=== PATIENT | female | born 1950 | race Caucasian/White ===

== ENCOUNTER 2016-10-20 08:04 | Outpatient (CLI) | payer MEDICARE, OTHER | END 2016-10-20 08:05 | disposition home or self-care (01) | DX: N05.9 Unspecified nephritic syndrome with unspecified morphologic changes (principal); D70.0 Congenital agranulocytosis; D63.1 Anemia in chronic kidney disease; T86.10 Unspecified complication of kidney transplant ==

== ENCOUNTER 2016-11-27 07:43 | Outpatient (CLI) | payer MEDICARE, OTHER | END 2016-11-27 07:44 | disposition home or self-care (01) | DX: N05.9 Unspecified nephritic syndrome with unspecified morphologic changes (principal); D70.0 Congenital agranulocytosis; D63.1 Anemia in chronic kidney disease; T86.10 Unspecified complication of kidney transplant ==

== ENCOUNTER 2016-12-05 07:09 | Emergency (ER) | payer MEDICARE, OTHER ==
[2016-12-05] MEDS ORDERED: HYDROmorphone 1 MG/ML SYRINGE IVP STA (07:33)
[2016-12-05] MEDS ORDERED: cefTRIAXone 1 GM in SODIUM CHLORIDE 0.9% MINIBAG 100 ML IV STA (07:33)
[2016-12-05] MEDS ORDERED: ONDANSETRON 4 MG/2 ML VIAL IVP STA (07:33)
[2016-12-05] MEDS ORDERED: ONDANSETRON 4 MG/2 ML VIAL ONE (07:43)
[2016-12-05] MEDS ORDERED: HYDROmorphone 1 MG/ML SYRINGE ONE (07:43)
[2016-12-05] MEDS ORDERED: cefTRIAXone 1 GM VIAL ONE ×2 (07:44→08:17)
[2016-12-05] MEDS ORDERED: LIDOCAINE 1% 2 ML VIAL ONE (08:17)
== END 2016-12-05 11:12 | disposition home or self-care (01) ==
DX: L03.115 Cellulitis of right lower limb (principal); Z94.0 Kidney transplant status; E11.9 Type 2 diabetes mellitus without complications; Z79.4 Long term (current) use of insulin; I10 Essential (primary) hypertension; Z87.891 Personal history of nicotine dependence; Z79.02 Long term (current) use of antithrombotics/antiplatelets; Z79.82 Long term (current) use of aspirin
CPT/HCPCS: 36415; 80053; 81003; 83605; 83690; 85025; 87040; 96372; 96374; 96375; 99283; 99284; J1170

== ENCOUNTER 2016-12-29 06:23 | Outpatient (CLI) | payer MEDICARE, OTHER | END 2016-12-29 06:24 | disposition home or self-care (01) | DX: N18.9 Chronic kidney disease, unspecified (principal); E11.9 Type 2 diabetes mellitus without complications; E78.1 Pure hyperglyceridemia; N05.9 Unspecified nephritic syndrome with unspecified morphologic changes; D70.0 Congenital agranulocytosis; D63.1 Anemia in chronic kidney disease; T86.10 Unspecified complication of kidney transplant ==

== ENCOUNTER 2017-03-12 08:00 | Outpatient (CLI) | payer MEDICARE, OTHER ==
[2017-03-12 13:31] LABS: BASOPHILS # (AUTO) 0.1 10^3/uL (0.0-0.1); BASOPHILS % (AUTO) 0.8 %; EOSINOPHILS # (AUTO) 0.3 10^3/uL (0.0-0.7); EOSINOPHILS % (AUTO) 2.9 %; HCT - HEMATOCRIT 39.2 % (37.0-47.0); HGB - HEMOGLOBIN 12.7 g/dL (12.0-16.0); LYMPHOCYTES # (AUTO) 2.5 10^3/uL (1.5-3.5); LYMPHOCYTES % (AUTO) 24.2 %; MEAN CORPUSCULAR HGB CONC 32.4 g/dL (32.0-36.0); MEAN CORPUSCULAR VOLUME 92.5 fL (81.0-99.0); MEAN PLATELET VOLUME 8.4 fL (7.9-10.8); MONOCYTES # (AUTO) 0.8 10^3/uL (0.0-1.0); MONOCYTES % (AUTO) 7.8 %; NEUTROPHILS # (AUTO) 6.7 10^3/uL (1.5-6.6); NEUTROPHILS % (AUTO) 64.3 %; NUCLEATED RED BLOOD CELLS AUTO 0.1 /100WBC; RED BLOOD COUNT 4.23 10^6/uL (4.20-5.40); RED CELL DISTRIBUTION WIDTH 13.9 % (12.0-15.0); UNCORRECTED WHITE BLOOD COUNT 10.4 x10^3/uL; WHITE BLOOD COUNT 10.4 x10^3/uL (4.8-10.8)
[2017-03-12 13:54] LABS: ALBUMIN/GLOBULIN RATIO 1.2 (1.0-2.2); BILIRUBIN,TOTAL 0.8 mg/dL (0.2-1.0); CALCIUM 10.2 mg/dL (8.5-10.3); CREATININE 1.5 mg/dL (0.4-1.0); MAGNESIUM 2.2 mg/dL (1.7-2.8); PHOSPHORUS 3.5 mg/dL (2.5-4.6); POTASSIUM 3.1 mmol/L (3.5-5.0); TOTAL PROTEIN 7.4 g/dL (6.7-8.2)
== END 2017-03-12 08:01 | disposition home or self-care (01) ==
LOC: LAB.N 08:00
PROVIDERS: ATTEND Internal Medicine Nephrology
DX: Z94.0 Kidney transplant status (principal); T86.40 Unspecified complication of liver transplant
CPT/HCPCS: 36415; 80053; 80197; 83735; 84100; 85025

== ENCOUNTER 2017-04-06 14:33 | Outpatient (CLI) | payer OTHER ==
--- NOTE | 2017-04-09 16:43 | Mammography Report ---
DIGITAL SCREENING MAMMOGRAM: 04/06/2017 CLINICAL INDICATION: A 66-year-old nulliparous patient with history of benign right breast biopsy fo r screening. COMPARISON: 10/2015, 08/2014, 07/2013, 07/2012, 07/2011, 02/2010, 02/2009, 02/2008, 02/2007 TECHNIQUE: Routine CC and MLO projections were obtained of the breasts. FINDINGS: The breasts again demonstrate scattered fibroglandular densities bilaterally. Coarse and punctate, typically benign calcifications are present. No suspicious masses, clustered microcalcific ations, or regions of architectural distortion are identified. IMPRESSION: BENIGN FINDINGS. RECOMMENDATION: Routine annual screening unless otherwise clinically indicated. BIRADS CATEGORY 2 - BENIGN FINDINGS. STANDARD QUALIFYING STATEMENTS 1. This examination was reviewed with the aid of Computer-Aided Detection (CAD). 2. A negative or benign imaging report should not delay biopsy if clinically suspicious findings are present. Consider surgical consultation if warranted. More than 5% of cancers are not identified by i maging. 3. Dense breasts may obscure an underlying neoplasm. JOB #: [id number] EXT JOB #:[id number]
== END 2017-04-06 14:34 | disposition home or self-care (01) ==
LOC: DI 14:33
PROVIDERS: ATTEND Internal Medicine
DX: Z12.31 Encounter for screening mammogram for malignant neoplasm of breast (principal); Z80.3 Family history of malignant neoplasm of breast
CPT/HCPCS: 77067

== ENCOUNTER 2017-04-25 07:19 | Outpatient (CLI) | payer OTHER | END 2017-04-25 07:20 | disposition critical access hospital (66) | LOC: EMS 07:19 | PROVIDERS: ATTEND Surgery | DX: R41.82 Altered mental status, unspecified (principal) | CPT/HCPCS: A0425; A0429 ==

== ENCOUNTER 2017-04-25 07:37 | Emergency (ER) | payer OTHER ==
[2017-04-25] MEDS ORDERED: ONDANSETRON ODT 4 MG TABLET ONE (07:52)
[2017-04-25] MEDS ORDERED: SODIUM CHLORIDE 0.9% 1,000 ML IV ONE (07:56)
[2017-04-25] MEDS ORDERED: SODIUM CHLORIDE FLUSH 0.9% 10 ML SYRINGE IVP ONE (08:38)
[2017-04-25 09:18] LABS: BASOPHILS # (AUTO) 0.1 10^3/uL (0.0-0.1); BASOPHILS % (AUTO) 0.3 %; HCT - HEMATOCRIT 37.6 % (37.0-47.0); HGB - HEMOGLOBIN 12.3 g/dL (12.0-16.0); LYMPHOCYTES % (AUTO) 5.7 %; MEAN CORPUSCULAR HGB CONC 32.7 g/dL (32.0-36.0); MEAN CORPUSCULAR VOLUME 91.7 fL (81.0-99.0); MEAN PLATELET VOLUME 8.2 fL (7.9-10.8); MONOCYTES # (AUTO) 1.4 10^3/uL (0.0-1.0); MONOCYTES % (AUTO) 7.7 %; NEUTROPHILS # (AUTO) 15.2 10^3/uL (1.5-6.6); NEUTROPHILS % (AUTO) 86.3 %; RED CELL DISTRIBUTION WIDTH 14.2 % (12.0-15.0); UNCORRECTED WHITE BLOOD COUNT 17.7 x10^3/uL; WHITE BLOOD COUNT 17.7 x10^3/uL (4.8-10.8)
[2017-04-25 09:29] LABS: INR 1.1 (0.8-1.2); PT - PROTHROMBIN TIME 11.8 secs (9.9-12.6)
[2017-04-25 09:33] LABS: ALBUMIN/GLOBULIN RATIO 1.1 (1.0-2.2); BILIRUBIN,TOTAL 1.1 mg/dL (0.2-1.0); CALCIUM 10.2 mg/dL (8.5-10.3); CREATININE 2.1 mg/dL (0.4-1.0); POTASSIUM 4.3 mmol/L (3.5-5.0); TOTAL PROTEIN 7.2 g/dL (6.7-8.2)
[2017-04-25 09:36] LABS: PARTIAL THROMBOPLASTIN TIME 18.4 secs (24.9-33.3)
[2017-04-25] MEDS ORDERED: ONDANSETRON ODT 4 MG TABLET TL STA (09:40)
[2017-04-25] MEDS ORDERED: HYDROmorphone 1 MG/ML SYRINGE IVP STA (09:47)
--- NOTE | 2017-04-25 09:48 | XRAY Preliminary Report ---
Exam: XR Chest for Line Placement IMPRESSION: 1. A small catheter is projected over the right side of neck in the expected jugular region. However the intrathoracic portion of the catheter cannot be visualized. 2. No acute abnormality or pneumothorax in this oblique view. [facility] SITE ID: [id number]
--- NOTE | 2017-04-25 09:50 | XRAY Report ---
EXAM: CHEST RADIOGRAPHY EXAM DATE: 04/25/2017 09:29 AM. CLINICAL HISTORY: Cough, fever. Rt IJ Placement. COMPARISON: CHEST RADIOGRAPHY 08/25/2015. TECHNIQUE: Portable right oblique view. FINDINGS: There is respiratory motion blurring. Lungs/Pleura: No focal opacities evident. No pleural effusion. No pneumothorax. Mediastinum: Within exam limitations, cardiomediastinal contour is normal for an oblique view. Other: A small catheter is projected over the right side of neck in the expected jugular region. Garcia russ the intrathoracic portion of the catheter cannot be visualized. IMPRESSION: 1. A small catheter is projected over the right side of neck in the expected jugular region. However the intrathoracic portion of the catheter cannot be visualized. 2. No acute abnormality or pneumothorax in this oblique view. [facility] Referring Provider Line: [phone] SITE ID: [id number]
[2017-04-25] MEDS ORDERED: HYDROmorphone 1 MG/ML SYRINGE ONE (09:56)
[2017-04-25] MEDS ORDERED: CEFEPIME 1 GM in SODIUM CHLORIDE 0.9% MINIBAG 100 ML IV STA (10:11)
[2017-04-25 10:18] LABS: BILIRUBIN,URINE NEGATIVE (NEGATIVE); PH,URINE 5.5 PH (5.0-7.5)
[2017-04-25 10:21] LABS: UA w/ MICROSCOPIC CHARGE YES
[2017-04-25 10:27] LABS: UR CULTURE IF IND NOT INDICATED; WBC,URINE 0-3 /HPF (0-5)
--- NOTE | 2017-04-25 11:22 | CT Report ---
EXAM: CT ABDOMEN AND PELVIS WITHOUT CONTRAST EXAM DATE: 04/25/2017 10:47 AM. CLINICAL HISTORY: Diarrhea, n/v. R/O SBO. Kidney transplant. COMPARISONS: CT ABDOMEN AND PELVIS WITHOUT CONTRAST 05/05/2016. TECHNIQUE: Routine helical CT imaging was performed through the abdomen and pelvis. IV contrast: None . Enteric contrast: No. Reconstructions: Coronal and sagittal. In accordance with CT protocol optimization, one or more of the following dose reduction techniques w ere utilized for this exam: automated exposure control, adjustment of mA and/or KV based on patient s ize, or use of iterative reconstructive technique. FINDINGS: Lung Bases: Unremarkable. Liver: Normal. No masses. Gallbladder/Bile Ducts: Post cholecystectomy. No dilated ducts. Spleen: Normal. Pancreas: Moderate to severe fatty atrophy, otherwise unremarkable. Adrenal Glands: Normal. Kidneys: Bilateral small [place] kidneys with marked thinning of cortex. No masses or hydronephrosis. Peritoneal Cavity/Bowel: Right iliac fossa renal transplant with normal morphology, without hydroneph rosis, calcification or perinephric abnormal fluid collection. No free fluid, free air or adenopathy. No masses or acute inflammatory process. The appendix is well visualized and normal. Pelvic Organs: Small amount of air within the otherwise normal urinary bladder, presumably secondary to instrumentation. The other visualized pelvic organs are within normal limits. Vasculature: No aneurysms or other significant abnormality. Bones: No significant abnormality. Other: None. IMPRESSION: 1. Stable examination with no acute abnormality. 2. No bowel obstruction or intra-abdominal inflammation. 3. Small amount of air within the otherwise normal urinary bladder, presumably secondary to instrumen tation. 4. Right iliac fossa renal transplant with normal morphology, without hydronephrosis, calcification o r perinephric abnormal fluid collection. [facility] Referring Provider Line: [phone] SITE ID: [id number]
--- NOTE | 2017-04-25 13:33 | ED Physician Documentation ---
History of Present Illness - Stated complaint Stated Complaint: HIP PX/POSS CVA - Chief complaint Chief Complaint: Neuro - Additonal information Additional information: She is a 66-year-old female who with a history of hypertension, diabetes, end- stage renal failure who is status post renal transplant in 2013. She is on tacrolimus and mycophenolate. She felt a little malaise and generalized unwellness yesterday and awoke this morning feeling very very weak. She does not recall exactly what happened but apparently she slipped or lowered herself to the floor which point she is unable to get up. The patient crawled around on the floor until she is able to summon help. When EMS arrived the patient was on the floor and there is feces in several different locations consistent with multiple episodes of diarrhea. The patient denies any obvious fever and she has not had any nausea vomiting. She did complain of generalized abdominal pain which is now better after having several bowel movements. She has not had any chest pain or coughing. She does complain of pain in her legs which is an ongoing issue. Review of systems: For pertinent positive and negatives in the review of systems please see the history of present illness, otherwise all other systems have been reviewed and are negative. Dragon disclaimer: Parts of this medical record were created using voice recognition technology. Because of the inherent limitations of this system, occasional same sounding word substitutions do occur and persist despite proofreading. Please read the document for context. Review of Systems Constitutional: reports: Chills, Myalgias Eyes: denies: Loss of vision Ears: denies: Loss of hearing, Ear pain, Drainage/discharge Nose: denies: Rhinorrhea / runny nose Throat: denies: Dental pain / toothache Cardiac: denies: Chest pain / pressure, Palpitations, Pedal edema, Calf pain Respiratory: denies: Dyspnea, Cough, Hemoptysis, Wheezing GI: reports: Abdominal Pain, Diarrhea. denies: Abdominal Swelling, Nausea, Vomiting : denies: Dysuria, Frequency, Hesitancy Skin: denies: Rash Musculoskeletal: denies: Neck pain, Back pain Neurologic: reports: Generalized weakness. denies: Numbness, Difficulty speaking, Near syncope, Syncope, Confused, Altered mental status Psychiatric: reports: Depressed, Suicidal Endocrine: denies: Polydypsia, Polyuria, Polyphagia PD PAST MEDICAL HISTORY - Past Medical History Past Medical History: Yes Cardiovascular: Hypertension, High cholesterol, Murmur Respiratory: Pneumonia Neuro: CVA Endocrine/Autoimmune: Type 2 diabetes GI: Pancreatitis, Cholelithiasis : Dialysis, Renal insuffiency, Nocturia, Other HEENT: Other Psych: Depression Musculoskeletal: Osteoarthritis, Fibromyalgia Derm: Other - Past Surgical History Past Surgical History: Yes General: Cholecystectomy Ortho: Arthroscopic surgery /[employer]: Dilation and currettage HEENT: Cataracts - Present Medications Home Medications: Ambulatory Orders Medication Instructions Recorded Confirmed Aspirin [Adult Low Dose Aspirin EC] 81 mg PO DAILY 02/26/13 04/25/17 Insulin Glargine,Hum.rec.anlog 35 unit SQ QPM 02/26/13 04/25/17 [Lantus] Insulin Lispro [Humalog] 9 - 12 unit SQ TIDWM 02/26/13 04/25/17 Lovastatin 10 mg PO QPM 02/26/13 04/25/17 Multivitamin [Multi-Day Vitamins] 1 tab PO DAILY 05/15/14 04/25/17 Prednisone 5 mg PO DAILY 05/15/14 04/25/17 Losartan [Cozaar] 100 mg PO DAILY 09/19/14 04/25/17 Mycophenolate Sodium [Mycophenolic 360 mg PO BID 09/19/14 04/25/17 Acid] Ranitidine HCl [Zantac] 150 mg PO QPM 09/19/14 04/25/17 Tacrolimus [Prograf] 1.5 mg PO BID 09/19/14 04/25/17 Furosemide [Lasix] 80 mg PO DAILY 03/03/15 04/25/17 Bimatoprost [Lumigan] 1 drop EACHEYE QPM 05/06/16 04/25/17 Brimonidine Tartrate/Timolol 1 drop EACHEYE BID 05/06/16 04/25/17 [Combigan 0.2%-0.5% Eye Drops] Clopidogrel [Plavix] 75 mg PO DAILY 05/06/16 04/25/17 Furosemide 40 mg PO QPM 05/06/16 04/25/17 Cephalexin [Keflex] 500 mg PO QID #30 capsule 12/05/16 04/25/17 Sulfamethoxazole/Trimethoprim 1 each PO BID #14 tablet 12/05/16 04/25/17 [Sulfamethoxazole-Tmp Ds Tablet] traMADol [Ultram] 50 - 100 mg PO Q4-6H PRN #20 tablet 12/05/16 04/25/17 - Allergies Allergies/Adverse Reactions: Allergies Allergy/AdvReac Type Severity Reaction Status Date / Time vancomycin Allergy Intermediate Rash Verified 05/05/16 17:39 erythromycin base Allergy Mild Rash Verified 05/05/16 17:39 [Erythromycin Base] hydrocodone [Hydrocodone] AdvReac Intermediate Nausea Verified 05/05/16 17:39 silver * AdvReac Mild Rash Verified 05/05/16 17:39 [From Tegaderm AG Mesh] - Social History Does the pt smoke?: No Smoking Status: Former smoker Does the pt drink ETOH?: No Does the pt have substance abuse?: No - Immunizations Immunizations are current?: Yes - POLST Patient has POLST: No PD ED PE NORMAL - Vitals Vital signs reviewed: Yes - General General: Other (Patient appears somnolent but is arousable. She appears mildly sedated. She does not look overtly toxic or ill but she is mildly diaphoretic and slightly warm to touch) - HEENT HEENT: Atraumatic, PERRL, EOMI - Neck Neck: Supple, no meningeal sign, No bony TTP, No JVD - Cardiac Cardiac: RRR, No murmur, No gallop, No rub - Respiratory Respiratory: No respiratory distress, Clear bilaterally - Abdomen Abdomen: Normal bowel sounds, Soft, Other (Mild diffuse tenderness which is generalized without focal) - Derm Derm: Normal color, Warm and dry, No rash, Other - Extremities Extremities: No deformity, No tenderness to palpate, Normal ROM s pain - Neuro Neuro: Alert and oriented X 3, No motor deficit, No sensory deficit Results - Vitals Vitals: Vital Signs - 24 hr 04/25/17 04/25/17 04/25/17 07:38 09:20 10:08 Temperature 37.9 C H 38.2 C H Heart Rate 87 89 85 Respiratory 18 20 18 Rate Blood Pressure 159/57 H 164/54 H 134/43 H O2 Saturation 96 96 97 04/25/17 04/25/17 10:53 12:15 Temperature Heart Rate 82 78 Respiratory 18 16 Rate Blood Pressure 145/46 H 128/51 L O2 Saturation 96 97 Oxygen O2 Source Room air - Labs Labs: Laboratory Tests 0804/25/17 04/25/17 09:00 09:00 09:00 WBC 17.7 H RBC 4.10 L Hgb 12.3 Hct 37.6 MCV 91.7 MCH 30.0 MCHC 32.7 RDW 14.2 Plt Count 214 MPV 8.2 Neut # 15.2 H Lymph # 1.0 L Eddy # 1.4 H Eos # 0.0 Baso # 0.1 Absolute Nucleated RBC 0.00 Nucleated RBCs 0.0 PT 11.8 INR 1.1 APTT 18.4 L Sodium 136 Potassium 4.3 Chloride 94 L Carbon Dioxide 28 Anion Gap 14.0 H BUN 70 H Creatinine 2.1 H Estimated GFR (MDRD) 24 L Glucose 317 H Lactic Acid Calcium 10.2 Total Bilirubin 1.1 H AST 31 ALT 18 Alkaline Phosphatase 70 Troponin I B-Natriuretic Peptide Total Protein 7.2 Albumin 3.7 Globulin 3.5 Albumin/Globulin Ratio 1.1 Lipase 58 H Urine Color Urine Clarity Urine pH Ur Specific [place] Urine Protein Urine Glucose (UA) Urine Ketones Urine Occult Blood Urine Nitrite Urine Bilirubin Urine Urobilinogen Ur Leukocyte Esterase Urine RBC Urine WBC Ur Epithelial Cells Ur Squamous Epith Cells Urine Bacteria Ur Microscopic Review Urine Culture Comments 04/25/17 04/25/17 04/25/17 09:00 09:00 09:00 WBC RBC Hgb Hct MCV MCH MCHC RDW Plt Count MPV Neut # Lymph # Eddy # Eos # Baso # Absolute Nucleated RBC Nucleated RBCs PT INR APTT Sodium Potassium Chloride Carbon Dioxide Anion Gap BUN Creatinine Estimated GFR (MDRD) Glucose Lactic Acid 1.6 Calcium Total Bilirubin AST ALT Alkaline Phosphatase Troponin I 0.07 B-Natriuretic Peptide 788 H Total Protein Albumin Globulin Albumin/Globulin Ratio Lipase Urine Color Urine Clarity Urine pH Ur Specific [place] Urine Protein Urine Glucose (UA) Urine Ketones Urine Occult Blood Urine Nitrite Urine Bilirubin Urine Urobilinogen Ur Leukocyte Esterase Urine RBC Urine WBC Ur Epithelial Cells Ur Squamous Epith Cells Urine Bacteria Ur Microscopic Review Urine Culture Comments 04/25/17 10:07 WBC RBC Hgb Hct MCV MCH MCHC RDW Plt Count MPV Neut # Lymph # Eddy # Eos # Baso # Absolute Nucleated RBC Nucleated RBCs PT INR APTT Sodium Potassium Chloride Carbon Dioxide Anion Gap BUN Creatinine Estimated GFR (MDRD) Glucose Lactic Acid Calcium Total Bilirubin AST ALT Alkaline Phosphatase Troponin I B-Natriuretic Peptide Total Protein Albumin Globulin Albumin/Globulin Ratio Lipase Urine Color YELLOW Urine Clarity HAZY Urine pH 5.5 Ur Specific [place] 1.020 Urine Protein NEGATIVE Urine Glucose (UA) 100 H Urine Ketones NEGATIVE Urine Occult Blood MODERATE H Urine Nitrite NEGATIVE Urine Bilirubin NEGATIVE Urine Urobilinogen 0.2 (NORMAL) Ur Leukocyte Esterase NEGATIVE Urine RBC 0-5 Urine WBC 0-3 Ur Epithelial Cells RARE Renal Tubular Ur Squamous Epith Cells FEW Squamous Urine Bacteria Rare Ur Microscopic Review INDICATED Urine Culture Comments NOT INDICATED PD MEDICAL DECISION MAKING - ED course Complexity details: reviewed old records, reviewed results, re-evaluated patient , considered differential, d/w patient, d/w [facility] consultant ED course: Patient is a 66-year-old female history of hypertension, diabetes, chronic kidney disease status post renal transplant in 2013. The kidney is in the right lower quadrant of her abdomen. She complained of the day of malaise and then had generalized weakness with several episodes of diarrhea this morning and was unable to get off the floor at her home. She was brought in by ambulance for evaluation. Here the patient appeared a little somnolent and had poor recollection of events. She did have a nonfocal neurologic examination. She is palpably warm to touch rectal temperature was 100.7. She was not tachycardic or hypotensive. Given her history of renal transplant and immunosuppressive medications I was concerned about sepsis as an etiology. Blood cultures and serum lactate were obtained. The patient had very poor IV access and after spending 30 minutes looking for access the right internal jugular 20-gauge catheter was placed by me using ultrasound guidance and usual sterile technique. The initial plan was to place a triple-lumen catheter however the with vein was easily found with ultrasound and cannulated however on multiple attempts a wire would not pass easily. At this point in time I place a 20-gauge 3 inch catheter without problem and obtained blood samples for evaluation. Radiographically the catheter appears to be a normal position afterward without complications there is no evidence of any acute intrathoracic disease. EKG on this patient shows normal sinus rhythm. The patient was tremulous initially which gives it a pattern it looks like atrial fibrillation however it appears to be normal sinus rhythm on further evaluation. There is a Q-wave inferiorly and poor R-wave progression otherwise no acute ST-T wave abnormality is seen. Because of the diarrhea and probable sepsis a CT without contrast was performed on her abdomen and pelvis looking for possible source. The CT scan is unremarkable for anything acute. The transplanted kidney appears to be normal in appearance on CT scan.. This patient does have elevation of her white blood cell count at 17,000. There is interval slight worsening in her renal function with a BUN increasing from 64-70 from February until now and a creatinine increased from 1.5-2.1 today again the prior one from February. The patient's urine is clean and her serum lactate is 1.8. There is no evidence of obvious source on chest x-ray, urinalysis or CT scan of the abdomen done without IV contrast. Patient was given empiric antibiotics consisting of 1 g of cefepime and is received 1-1/2 L of normal saline and is doing well. She has not had any recurrent episodes of diarrhea however if she does we will obtain samples for stool analysis. At this point in time we do not have hospital beds. I talked with the patient's animal shelter manager Dr. Liu who recommends [facility] if we can get her to that facility. I have talked with the [place] physician in charge transfers and return to get her to [facility] at this time. Disposition: Transfer to [facility] Clinical impression: 1. Sepsis 2. No obvious source 3. History of moderate diarrhea this morning without recurrence 4. Probable acute kidney injury 5. Hypertension and diabetes status post renal transplant 2013 on mycophenolate and tacrolimus Critical care time approximately 65 minutes exclusive of procedures t Departure - Departure Disposition: 02 Transfer Acute Care Hosp Clinical Impression: Sepsis
[2017-04-25 15:10] VITALS: BP 114/54
== END 2017-04-25 15:05 | disposition short-term general hospital (02) ==
LOC: EDUNIT# → ED 07:37
DX: A41.9 Sepsis, unspecified organism (principal); I10 Essential (primary) hypertension; E11.9 Type 2 diabetes mellitus without complications; Z94.0 Kidney transplant status; E78.00 Pure hypercholesterolemia, unspecified; Z86.73 Personal history of transient ischemic attack (TIA), and cerebral infarction without residual deficits; Z79.4 Long term (current) use of insulin; Z79.82 Long term (current) use of aspirin; Z79.899 Other long term (current) drug therapy; M79.7 Fibromyalgia; Z87.891 Personal history of nicotine dependence
CPT/HCPCS: 36415; 51701; 74176; 80053; 81001; 83605; 83690; 83880; 84484; 85025; 85610; 85730; 87040; 87077; 87181; 93005; 96374; 96375; 99285; 99291; J1170; Q0162; 71010; 81003; 87086

== ENCOUNTER 2017-04-25 15:15 | Outpatient (CLI) | payer OTHER | END 2017-04-25 15:16 | disposition short-term general hospital (02) | LOC: EMS 15:15 | PROVIDERS: ATTEND Surgery | DX: A41.9 Sepsis, unspecified organism (principal) | CPT/HCPCS: A0170; A0425; A0426 ==

== ENCOUNTER 2017-05-18 07:49 | Outpatient (CLI) | payer OTHER ==
[2017-05-18 08:26] LABS: BASOPHILS # (AUTO) 0.1 10^3/uL (0.0-0.1); BASOPHILS % (AUTO) 1.2 %; EOSINOPHILS # (AUTO) 0.5 10^3/uL (0.0-0.7); EOSINOPHILS % (AUTO) 5.3 %; HCT - HEMATOCRIT 38.4 % (37.0-47.0); HGB - HEMOGLOBIN 12.5 g/dL (12.0-16.0); LYMPHOCYTES # (AUTO) 2.7 10^3/uL (1.5-3.5); LYMPHOCYTES % (AUTO) 28.9 %; MEAN CORPUSCULAR HEMOGLOBIN 30.5 pg (27.0-31.0); MEAN CORPUSCULAR HGB CONC 32.7 g/dL (32.0-36.0); MEAN CORPUSCULAR VOLUME 93.2 fL (81.0-99.0); MONOCYTES # (AUTO) 0.7 10^3/uL (0.0-1.0); NEUTROPHILS # (AUTO) 5.2 10^3/uL (1.5-6.6); NEUTROPHILS % (AUTO) 56.6 %; RED BLOOD COUNT 4.12 10^6/uL (4.20-5.40); RED CELL DISTRIBUTION WIDTH 14.5 % (12.0-15.0); UNCORRECTED WHITE BLOOD COUNT 9.2 x10^3/uL; WHITE BLOOD COUNT 9.2 x10^3/uL (4.8-10.8)
[2017-05-18 08:43] LABS: BUN - BLOOD UREA NITROGEN 46 mg/dL (6-20); CALCIUM 10.2 mg/dL (8.5-10.3); CARBON DIOXIDE - CO2 32 mmol/L (21-32); CHLORIDE 97 mmol/L (101-111); CHOL/HDL RATIO 2.2 (<4.4); CHOLESTEROL 153 mg/dL; CREATININE 1.3 mg/dL (0.4-1.0); GFR - MDRD 41 (>89); GLUCOSE 146 mg/dL (70-100); HDL CHOLESTEROL 69 mg/dL; LDL/HDL RATIO 0.7 (<4.4); SODIUM 139 mmol/L (135-145); TRIGLYCERIDES 183 mg/dL; VLDL CHOLESTEROL 37 mg/dL
[2017-05-18 10:12] LABS: HEMOGLOBIN A1C 0.92 g/dL
== END 2017-05-18 07:50 | disposition home or self-care (01) ==
LOC: LAB 07:49
PROVIDERS: ATTEND Internal Medicine Infectious Disease
DX: N05.9 Unspecified nephritic syndrome with unspecified morphologic changes (principal); D70.0 Congenital agranulocytosis; D63.1 Anemia in chronic kidney disease; T86.10 Unspecified complication of kidney transplant; Z13.220 Encounter for screening for lipoid disorders; E11.40 Type 2 diabetes mellitus with diabetic neuropathy, unspecified; R78.81 Bacteremia
CPT/HCPCS: 36415; 80048; 80061; 80197; 82043; 82570; 83036; 85025; 87040

== ENCOUNTER 2017-05-25 08:38 | Outpatient (CLI) | payer OTHER | END 2017-05-25 08:39 | disposition home or self-care (01) | LOC: LAB 08:38 | PROVIDERS: ATTEND Internal Medicine Infectious Disease | DX: R78.81 Bacteremia (principal) | CPT/HCPCS: 36415; 87040 ==

== ENCOUNTER 2017-06-18 07:51 | Outpatient (CLI) | payer OTHER | END 2017-06-18 07:52 | disposition home or self-care (01) | LOC: LAB.N 07:51 | PROVIDERS: ATTEND Internal Medicine Nephrology | DX: T86.10 Unspecified complication of kidney transplant (principal) | CPT/HCPCS: 36415; 80197 ==

== ENCOUNTER 2017-08-22 07:30 | Outpatient (CLI) | payer OTHER ==
[2017-08-22 07:58] LABS: HCT - HEMATOCRIT 39.9 % (37.0-47.0); HGB - HEMOGLOBIN 13.1 g/dL (12.0-16.0); MEAN CORPUSCULAR HEMOGLOBIN 29.8 pg (27.0-31.0); MEAN CORPUSCULAR HGB CONC 32.8 g/dL (32.0-36.0); MEAN CORPUSCULAR VOLUME 90.6 fL (81.0-99.0); MEAN PLATELET VOLUME 7.9 fL (7.9-10.8); RED BLOOD COUNT 4.4 10^6/uL (4.20-5.40); WHITE BLOOD COUNT 10.5 x10^3/uL (4.8-10.8)
[2017-08-22 08:08] LABS: PHOSPHORUS 3.6 mg/dL (2.5-4.6)
[2017-08-22 09:59] LABS: HEMOGLOBIN A1C 1.01 g/dL
== END 2017-08-22 07:31 | disposition home or self-care (01) ==
LOC: LAB 07:30
PROVIDERS: ATTEND Internal Medicine Nephrology
DX: E11.40 Type 2 diabetes mellitus with diabetic neuropathy, unspecified (principal); E21.3 Hyperparathyroidism, unspecified; E78.1 Pure hyperglyceridemia; I50.32 Chronic diastolic (congestive) heart failure; D70.9 Neutropenia, unspecified; D63.1 Anemia in chronic kidney disease; E83.40 Disorders of magnesium metabolism, unspecified; E83.30 Disorder of phosphorus metabolism, unspecified
CPT/HCPCS: 36415; 80197; 83036; 83735; 83880; 84100

== ENCOUNTER 2017-11-12 08:36 | Outpatient (CLI) | payer OTHER, MEDICARE ==
--- NOTE | 2017-11-12 10:46 | XRAY Report ---
TWO VIEW CHEST: 11/12/2017 CLINICAL INDICATION: Reactive airways disease. COMPARISON: 04/25/2017. FINDINGS: Frontal and lateral views of the chest demonstrate a normal cardiac silhouette. Minimal linear atelectasis or scarring is seen at the bases. No focal infiltrate, effusion, or pneumothorax is present. IMPRESSION: BIBASILAR LINEAR ATELECTASIS OR SCARRING. TD: 11/12/2017 10:39
== END 2017-11-12 08:37 | disposition home or self-care (01) ==
LOC: DI 08:36
PROVIDERS: ATTEND Internal Medicine
DX: J45.909 Unspecified asthma, uncomplicated (principal); I10 Essential (primary) hypertension
CPT/HCPCS: 71046

== ENCOUNTER 2017-11-14 08:00 | Outpatient (CLI) | payer OTHER, MEDICARE ==
[2017-11-14 13:04] LABS: HGB - HEMOGLOBIN 12.7 g/dL (12.0-16.0); MEAN CORPUSCULAR HEMOGLOBIN 29.5 pg (27.0-31.0); MEAN CORPUSCULAR HGB CONC 31.9 g/dL (32.0-36.0); MEAN CORPUSCULAR VOLUME 92.4 fL (81.0-99.0); MEAN PLATELET VOLUME 8.4 fL (7.9-10.8); RED BLOOD COUNT 4.29 10^6/uL (4.20-5.40); RED CELL DISTRIBUTION WIDTH 14.6 % (12.0-15.0); WHITE BLOOD COUNT 9.3 x10^3/uL (4.8-10.8)
[2017-11-14 13:10] LABS: ALBUMIN 3.9 g/dL (3.2-5.5); ALBUMIN/GLOBULIN RATIO 1.1 (1.0-2.2); ALKALINE PHOSPHATASE 90 IU/L (42-121); ALT ALANINE AMINOTRANSFERASE 23 IU/L (10-60); AST ASPARTATE AMINOTRANSFERASE 26 IU/L (10-42); BILIRUBIN,TOTAL 0.4 mg/dL (0.2-1.0); BUN - BLOOD UREA NITROGEN 29 mg/dL (6-20); CALCIUM 9.4 mg/dL (8.5-10.3); CARBON DIOXIDE - CO2 26 mmol/L (21-32); CHLORIDE 99 mmol/L (101-111); CHOL/HDL RATIO 2.2 (<4.4); CHOLESTEROL 159 mg/dL; GFR - MDRD 56 (>89); GLUCOSE 180 mg/dL (70-100); HDL CHOLESTEROL 73 mg/dL; LDL CHOLESTEROL,CALCULATED 51 mg/dL; LDL/HDL RATIO 0.7 (<4.4); SODIUM 137 mmol/L (135-145); TOTAL PROTEIN 7.3 g/dL (6.7-8.2); VLDL CHOLESTEROL 35 mg/dL
[2017-11-14 13:12] LABS: HB2 TOTAL 14.3 g/dL; HEMOGLOBIN A1C 1.23 g/dL
== END 2017-11-14 08:01 | disposition home or self-care (01) ==
LOC: LAB.N 08:00
PROVIDERS: ATTEND Internal Medicine
DX: E11.9 Type 2 diabetes mellitus without complications (principal); D50.9 Iron deficiency anemia, unspecified; E21.3 Hyperparathyroidism, unspecified; E78.1 Pure hyperglyceridemia; I10 Essential (primary) hypertension; Z79.899 Other long term (current) drug therapy
CPT/HCPCS: 36415; 80053; 80061; 83036; 83721; 84443

== ENCOUNTER 2017-12-04 08:00 | Outpatient (CLI) | payer OTHER, MEDICARE ==
[2017-12-04 12:39] LABS: HGB - HEMOGLOBIN 12.9 g/dL (12.0-16.0); MEAN CORPUSCULAR HEMOGLOBIN 29.4 pg (27.0-31.0); MEAN CORPUSCULAR HGB CONC 32.4 g/dL (32.0-36.0); MEAN CORPUSCULAR VOLUME 90.8 fL (81.0-99.0); MEAN PLATELET VOLUME 8.5 fL (7.9-10.8); RED BLOOD COUNT 4.39 10^6/uL (4.20-5.40); RED CELL DISTRIBUTION WIDTH 14.5 % (12.0-15.0); WHITE BLOOD COUNT 9.1 x10^3/uL (4.8-10.8)
[2017-12-04 13:06] LABS: CALCIUM 9.8 mg/dL (8.5-10.3)
[2017-12-04 14:22] LABS: CREATININE 1.4 mg/dL (0.4-1.0)
== END 2017-12-04 08:01 | disposition home or self-care (01) ==
LOC: LAB.N 08:00
PROVIDERS: ATTEND Internal Medicine Nephrology
DX: N05.9 Unspecified nephritic syndrome with unspecified morphologic changes (principal); I50.32 Chronic diastolic (congestive) heart failure; D70.9 Neutropenia, unspecified; D63.1 Anemia in chronic kidney disease; T86.10 Unspecified complication of kidney transplant
CPT/HCPCS: 36415; 80048; 80197; 83880

== ENCOUNTER 2018-03-28 07:22 | Outpatient (CLI) | payer MEDICARE, OTHER | END 2018-03-28 07:23 | disposition critical access hospital (66) | LOC: EMS 07:22 | PROVIDERS: ATTEND Surgery | DX: R41.82 Altered mental status, unspecified (principal); R15.9 Full incontinence of feces; R32 Unspecified urinary incontinence | CPT/HCPCS: A0425; A0427 ==

== ENCOUNTER 2018-03-28 07:44 | Emergency (ER) | payer MEDICARE, OTHER ==
[2018-03-28] MEDS ORDERED: SODIUM CHLORIDE 0.9% 1,000 ML IV ONE (07:55)
--- NOTE | 2018-03-28 07:57 | ED Physician Documentation ---
History of Present Illness - Stated complaint Stated Complaint: GLF - History obtained from History obtained from: Patient, EMS - History of Present Illness Timing: Today - Additonal information Additional information: 67-year-old female diabetic with a history of prior dialysis is now status post renal transplant and last night she spent the night on the floor after collapsing in her home. She placed her Lif[facility] this morning medics went to find her with an altered level of consciousness on her ground with blood sugars over 500. She did develop SVT in route to the hospital. The patient is able to give a few words of history. Review of Systems Constitutional: denies: Fever Eyes: denies: Decreased vision Ears: denies: Ear pain Nose: denies: Rhinorrhea / runny nose, Congestion Throat: denies: Sore throat Cardiac: denies: Chest pain / pressure, Palpitations Respiratory: reports: Dyspnea. denies: Cough GI: denies: Abdominal Pain, Vomiting, Diarrhea Musculoskeletal: reports: Back pain. denies: Neck pain Neurologic: reports: Generalized weakness, Altered mental status. 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 HEENT: Cataracts - Present Medications Home Medications: Ambulatory Orders Medication Instructions Recorded Confirmed Aspirin [Adult Low Dose Aspirin EC] 81 mg PO DAILY 02/26/13 10/24/17 Insulin Glargine,Hum.rec.anlog 35 unit SQ QPM 02/26/13 10/24/17 [Lantus] Insulin Lispro [Humalog] 9 - 12 unit SQ TIDWM 02/26/13 10/24/17 Lovastatin 10 mg PO QPM 02/26/13 10/24/17 Multivitamin [Multi-Day Vitamins] 1 tab PO DAILY 05/15/14 10/24/17 Prednisone 5 mg PO DAILY 05/15/14 10/24/17 Losartan [Cozaar] 100 mg PO DAILY 09/19/14 10/24/17 Mycophenolate Sodium [Mycophenolic 360 mg PO BID 09/19/14 10/24/17 Acid] Ranitidine HCl [Zantac] 150 mg PO QPM 09/19/14 10/24/17 Tacrolimus [Prograf] 1.5 mg PO BID 09/19/14 10/24/17 Furosemide [Lasix] 80 mg PO BID 03/03/15 10/24/17 Bimatoprost [Lumigan] 1 drop EACHEYE QPM 05/06/16 10/24/17 Brimonidine Tartrate/Timolol 1 drop EACHEYE BID 05/06/16 10/24/17 [Combigan 0.2%-0.5% Eye Drops] Clopidogrel [Plavix] 75 mg PO DAILY 05/06/16 10/24/17 Cephalexin [Keflex] 500 mg PO QID #30 capsule 12/05/16 10/24/17 metOLazone [Metolazone] 1 tab PO PRN PRN 10/24/17 10/24/17 raNITIdine [Zantac] 150 mg PO DAILY PM 10/24/17 10/24/17 - Allergies Allergies/Adverse Reactions: Allergies Allergy/AdvReac Type Severity Reaction Status Date / Time vancomycin Allergy Intermediate Rash Verified 03/28/18 07:56 erythromycin base Allergy Mild Rash Verified 03/28/18 07:56 [Erythromycin Base] hydrocodone [Hydrocodone] AdvReac Intermediate Nausea Verified 03/28/18 07:56 silver * AdvReac Mild Rash Verified 03/28/18 07:56 [From Tegaderm AG Mesh] - Social History Does the pt smoke?: No Smoking Status: Former smoker Does the pt drink ETOH?: No Does the pt have substance abuse?: No - Immunizations Immunizations are current?: Yes - POLST Patient has POLST: No PD ED PE NORMAL - Vitals Vital signs reviewed: Yes - General General: Well developed/nourished, Other (alert and interactive with few words and delay in execution of motor commands .) - HEENT HEENT: Atraumatic, PERRL, EOMI - Neck Neck: Supple, no meningeal sign - Cardiac Cardiac: No murmur, Other (tachy to 120 regular ) - Respiratory Respiratory: Other (tachypneic at rest with diminished breath sounds. ) - Abdomen Abdomen: Soft, Non tender, Other (obese) - Back Back: No CVA TTP, No spinal TTP - Derm Derm: Normal color, Warm and dry - Extremities Extremities: Other (There is dense edema and erythema to the calves bilaterally with angry appearing erythema, scaling of skin and urine staining. 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, No motor deficit, No sensory deficit Eye Opening: Spontaneous Motor: Obeys Commands Verbal: Confused GCS Score: 14 - Psych Psych: Normal mood, Normal affect Results - Vitals Vitals: Vital Signs - 24 hr 03/28/18 03/28/18 03/28/18 07:48 11:04 13:06 Temperature 37.2 C Heart Rate 124 H 120 H 131 H Respiratory 24 20 39 H Rate Blood Pressure 153/79 H 163/75 H 124/51 L O2 Saturation 98 95 96 Oxygen O2 Source Room air - EKG (time done) 0754 Rate: Rate (enter#) (126) Rhythm: Sinus tachycardia Intervals: Prolonged QT Compare to prior EKG: Changed from prior EKG (SPT 817 rate has increased) Computer interpretation: Agree with computer - Labs Labs: Laboratory Tests 03/28/18 03/28/18 03/28/18 09:08 09:08 09:08 WBC 27.2 H RBC 3.73 L Hgb 10.9 L Hct 35.5 L MCV 95.1 MCH 29.2 MCHC 30.6 L RDW 15.3 H Plt Count 208 MPV 8.6 Neut # (Auto) 25.6 H Lymph # (Auto) 0.4 L [place] # (Auto) 1.2 H Eos # (Auto) 0.0 Baso # (Auto) 0.0 Absolute Nucleated RBC 0.02 Nucleated RBC % 0.1 Manual Slide Review Indicated WBC Morphology Platelet Estimate NORMAL (130-450,000) Platelet Morphology NORMAL APPEARANCE RBC Morph Micro Appear NORMAL APPEARANCE Sodium 129 L Potassium 4.5 Chloride 88 L Carbon Dioxide 23 Anion Gap 18.0 H BUN 116 H* Creatinine 4.5 H Estimated GFR (MDRD) 10 L Glucose 507 H* Lactic Acid Calcium 9.0 Total Bilirubin 1.6 H AST 52 H ALT 29 Alkaline Phosphatase 119 Total Creatine Kinase 989 H CK-MB (CK-2) Troponin I 0.09 B-Natriuretic Peptide Total Protein 6.7 Albumin 2.7 L Globulin 4.0 Albumin/Globulin Ratio 0.7 L Lipase 29 Urine Color Urine Clarity Urine pH Ur Specific Bracey Urine Protein Urine Glucose (UA) Urine Ketones Urine Occult Blood Urine Nitrite Urine Bilirubin Urine Urobilinogen Ur Leukocyte Esterase Urine RBC Urine WBC Ur Squamous Epith Cells Amorphous Sediment Urine Bacteria Ur Microscopic Review Urine Culture Comments 03/28/18 03/28/18 03/28/18 09:08 09:08 10:33 WBC RBC Hgb Hct MCV MCH MCHC RDW Plt Count MPV Neut # (Auto) Lymph # (Auto) [place] # (Auto) Eos # (Auto) Baso # (Auto) Absolute Nucleated RBC Nucleated RBC % Manual Slide Review WBC Morphology Platelet Estimate Platelet Morphology RBC Morph Micro Appear Sodium Potassium Chloride Carbon Dioxide Anion Gap BUN Creatinine Estimated GFR (MDRD) Glucose Lactic Acid 2.3 H Calcium Total Bilirubin AST ALT Alkaline Phosphatase Total Creatine Kinase CK-MB (CK-2) 5.4 Troponin I B-Natriuretic Peptide 344 H Total Protein Albumin Globulin Albumin/Globulin Ratio Lipase Urine Color Urine Clarity Urine pH Ur Specific Bracey Urine Protein Urine Glucose (UA) Urine Ketones Urine Occult Blood Urine Nitrite Urine Bilirubin Urine Urobilinogen Ur Leukocyte Esterase Urine RBC Urine WBC Ur Squamous Epith Cells Amorphous Sediment Urine Bacteria Ur Microscopic Review Urine Culture Comments 03/28/18 03/28/18 10:35 13:31 WBC RBC Hgb Hct MCV MCH MCHC RDW Plt Count MPV Neut # (Auto) Lymph # (Auto) [place] # (Auto) Eos # (Auto) Baso # (Auto) Absolute Nucleated RBC Nucleated RBC % Manual Slide Review WBC Morphology Platelet Estimate Platelet Morphology RBC Morph Micro Appear Sodium Potassium Chloride Carbon Dioxide Anion Gap BUN Creatinine Estimated GFR (MDRD) Glucose Lactic Acid 1.6 Calcium Total Bilirubin AST ALT Alkaline Phosphatase Total Creatine Kinase CK-MB (CK-2) Troponin I B-Natriuretic Peptide Total Protein Albumin Globulin Albumin/Globulin Ratio Lipase Urine Color YELLOW Urine Clarity CLOUDY Urine pH 6.0 Ur Specific Bracey 1.020 Urine Protein 100 H Urine Glucose (UA) 500 H Urine Ketones TRACE Urine Occult Blood LARGE H Urine Nitrite NEGATIVE Urine Bilirubin NEGATIVE Urine Urobilinogen 0.2 (NORMAL) Ur Leukocyte Esterase SMALL H Urine RBC TNTC H Urine WBC 11-25 H Ur Squamous Epith Cells RARE Squamous Amorphous Sediment Moderate Urine Bacteria Few Ur Microscopic Review INDICATED Urine Culture Comments INDICATED - Rads (name of study) CT head without Radiology: Prelim report reviewed (Impression: Generalized age-related cortical atrophic changes without evidence of acute intracranial abnormality. No significant change from prior.), EMP read indepedently, See rad report 1 view chest Radiology: Prelim report reviewed (Impression: Right basilar atelectasis.), EMP read indepedently, See rad report Procedures - IVC sono (time) 0810 Bedside IVC sono: IVC measures (cm) (1.24), IVC collapsed c insp (cm) (0.81), Dehydration (mild) PD MEDICAL DECISION MAKING - ED course Complexity details: reviewed old records, reviewed results, re-evaluated patient , considered differential, d/w patient ED course: 67-year-old female with a history of diabetes and renal failure status post transplant in 2013 who has collapsed in her home and has been on the floor for an unknown period of time. She is not able to contribute much to the history and she looks very ill. She appear septic on arrival she has erythematous angry calves bilaterally she has markedly elevated white blood cell count altered mentation elevated glucose and decreased volume as well as tachycardia and renal failure. Her potassium is normal. She has a buttocks bruise and evidence of exposure with an elevated CPK as well. - Sepsis Event Vital Signs: Vital Signs - 24 hr 03/28/18 03/28/18 03/28/18 07:48 11:04 13:06 Temperature 37.2 C Heart Rate 124 H 120 H 131 H Respiratory 24 20 39 H Rate Blood Pressure 153/79 H 163/75 H 124/51 L O2 Saturation 98 95 96 Oxygen O2 Source Room air Departure - Departure Disposition: 02 Transfer Acute Care Hosp Clinical Impression: Acute kidney injury superimposed on chronic kidney disease, Altered level of consciousness Sepsis Qualifiers: Sepsis type: sepsis due to unspecified organism Qualified Code(s): A41.9 - Sepsis, unspecified organism Urinary tract infection Qualifiers: Urinary tract infection type: acute cystitis Hematuria presence: with hematuria Qualified Code(s): N30.01 - Acute cystitis with hematuria Cellulitis Qualifiers: Site of cellulitis: extremity Site of cellulitis of extremity: lower extremity Laterality: unspecified laterality Qualified Code(s): L03.119 - Cellulitis of unspecified part of limb
[2018-03-28 09:23] LABS: BASOPHILS % (AUTO) 0.1 %; EOSINOPHILS % (AUTO) 0.2 %; HGB - HEMOGLOBIN 10.9 g/dL (12.0-16.0); LYMPHOCYTES # (AUTO) 0.4 10^3/uL (1.5-3.5); LYMPHOCYTES % (AUTO) 1.4 %; MEAN CORPUSCULAR HEMOGLOBIN 29.2 pg (27.0-31.0); MEAN CORPUSCULAR HGB CONC 30.6 g/dL (32.0-36.0); MEAN CORPUSCULAR VOLUME 95.1 fL (81.0-99.0); MEAN PLATELET VOLUME 8.6 fL (7.9-10.8); MONOCYTES # (AUTO) 1.2 10^3/uL (0.0-1.0); MONOCYTES % (AUTO) 4.4 %; NEUTROPHILS # (AUTO) 25.6 10^3/uL (1.5-6.6); NEUTROPHILS % (AUTO) 93.9 %; PLT - PLATELET COUNT 208 10^3/uL (130-450); RED BLOOD COUNT 3.73 10^6/uL (4.20-5.40); RED CELL DISTRIBUTION WIDTH 15.3 % (12.0-15.0); WHITE BLOOD COUNT 27.2 x10^3/uL (4.8-10.8)
[2018-03-28 09:49] LABS: PLATELET ESTIMATE, MANUAL NORMAL (130-450,000) (NORMAL); PLATELET MORPHOLOGY NORMAL APPEARANCE (NORMAL); RBC MORPHOLOGY (MULTIPLE) NORMAL APPEARANCE (NORMAL)
[2018-03-28 09:52] LABS: ALBUMIN 2.7 g/dL (3.2-5.5); ALBUMIN/GLOBULIN RATIO 0.7 (1.0-2.2); BILIRUBIN,TOTAL 1.6 mg/dL (0.2-1.0); CREATININE 4.5 mg/dL (0.4-1.0); TOTAL PROTEIN 6.7 g/dL (6.7-8.2)
[2018-03-28] MEDS ORDERED: CEFEPIME 2 GM in SODIUM CHLORIDE 0.9% MINIBAG 100 ML IV STA (10:05)
[2018-03-28] MEDS ORDERED: INSULIN REGULAR HUMAN 100 UNIT/1 ML 10 ML MDV IVP STA (10:06)
--- NOTE | 2018-03-28 10:22 | XRAY Report ---
Procedure Date: 03/28/2018 Accession Number: [id number] / [id number] Procedure: XR - Chest 1 View X-Ray CPT Code: 55439 FULL RESULT: EXAM: CHEST RADIOGRAPHY EXAM DATE: 03/28/2018 09:54 AM. CLINICAL HISTORY: Cough. COMPARISON: 11/12/2017. TECHNIQUE: 1 view. FINDINGS: Lungs/Pleura: Right basilar atelectasis No pleural effusion. No pneumothorax. Decreased lung volumes Mediastinum: Heart size is within normal limits. Ectatic aorta Other: None. IMPRESSION: Right basilar atelectasis RADIA
[2018-03-28 10:37] LABS: GLUCOSE, URINE (UA) 500 mg/dL (NEGATIVE); KETONES,URINE (UA) TRACE mg/dL (NEGATIVE); LEUKOCYTE ESTERASE, URINE SMALL (NEGATIVE); NITRITE,URINE NEGATIVE (NEGATIVE); OCCULT BLOOD,URINE LARGE (NEGATIVE); PROTEIN,URINE 100 mg/dL (NEGATIVE); UROBILINOGEN,URINE 0.2 (NORMAL) E.U./dL (NORMAL)
[2018-03-28 10:41] LABS: CLARITY,URINE CLOUDY (CLEAR)
[2018-03-28 10:48] LABS: AMORPHOUS SEDIMENT,UR Moderate /LPF; BACTERIA,URINE Few /HPF (None Seen); BILIRUBIN,URINE NEGATIVE (NEGATIVE); ICTOTEST,URINE NEGATIVE; RBC,URINE TNTC /HPF (0-5); SQUAMOUS EPITHELIAL CELL,UR RARE Squamous (<= Few)
--- NOTE | 2018-03-28 11:03 | CT Report ---
Procedure Date: 03/28/2018 Accession Number: [id number] / [id number] Procedure: CT - Head W/O CPT Code: FULL RESULT: EXAM: CT HEAD EXAM DATE: 03/28/2018 10:50 AM. CLINICAL HISTORY: Fall; altered mental status. COMPARISON: HEAD W/O 08/25/2015. TECHNIQUE: Multiaxial CT images were obtained from the foramen magnum to the vertex. Reformats: Coronal. IV contrast: None. In accordance with CT protocol optimization, one or more of the following dose reduction techniques were utilized for this exam: automated exposure control, adjustment of mA and/or KV based on patient size, or use of iterative reconstructive technique. FINDINGS: Parenchyma: No intraparenchymal hemorrhage. No evidence of mass, midline shift, or CT findings of acute infarction. Caraballo-white differentiation is overall distinct. Diffuse chronic microangiopathic white matter changes are evident. Extraaxial Spaces: Normal for age. No subdural or epidural collections identified. Ventricles: The ventricles and cortical sulci are enlarged, consistent with age-related tissue loss. Sinuses and orbits: Imaged paranasal sinuses, orbits, and mastoids show no significant abnormality. Bones: No evidence of fracture or calvarial defect. Other: None. IMPRESSION: Generalized age-related cortical atrophic changes without evidence of acute intracranial abnormality. No significant change from prior. RADIA
[2018-03-28 17:10] VITALS: BP 138/70
== END 2018-03-28 15:04 | disposition short-term general hospital (02) ==
LOC: EDUNIT# → EDBD → ED 07:44
DX: N17.9 Acute kidney failure, unspecified (principal); E11.22 Type 2 diabetes mellitus with diabetic chronic kidney disease; I12.9 Hypertensive chronic kidney disease with stage 1 through stage 4 chronic kidney disease, or unspecified chronic kidney disease; N18.9 Chronic kidney disease, unspecified; A41.9 Sepsis, unspecified organism; N30.01 Acute cystitis with hematuria; L03.119 Cellulitis of unspecified part of limb; E11.65 Type 2 diabetes mellitus with hyperglycemia; D72.829 Elevated white blood cell count, unspecified; E86.0 Dehydration; S30.0XXA Contusion of lower back and pelvis, initial encounter; R00.0 Tachycardia, unspecified; W18.30XA Fall on same level, unspecified, initial encounter; E78.00 Pure hypercholesterolemia, unspecified; Z79.4 Long term (current) use of insulin; Z99.2 Dependence on renal dialysis; Z94.0 Kidney transplant status; Z79.82 Long term (current) use of aspirin; Z87.891 Personal history of nicotine dependence
CPT/HCPCS: 36415; 70450; 71045; 71046; 80053; 81001; 82550; 82553; 83605; 83690; 83880; 84484; 85025; 87040; 87086; 87181; 93005; 96361; 96365; 96366; 99284; 99285; J1815; 81003

== ENCOUNTER 2018-03-28 15:22 | Outpatient (CLI) | payer MEDICARE, OTHER | END 2018-03-28 15:23 | disposition short-term general hospital (02) | LOC: EMS 15:22 | PROVIDERS: ATTEND Surgery | DX: A41.9 Sepsis, unspecified organism (principal) | CPT/HCPCS: A0170; A0425; A0426 ==